=== PATIENT | female | born 1995 | race Caucasian/White ===

== ENCOUNTER 2017-01-27 16:30 | Emergency (ER) | payer BC ==
--- NOTE | 2017-01-27 17:13 | EDM.PDOC ---
ED HPI GENERAL MEDICAL PROBLEM - General Chief Complaint: General Stated Complaint: anxiety attack Time Seen by Provider: 01/27/17 17:00 Source of Information: Reports: Patient History Limitations: Reports: No Limitations - History of Present Illness INITIAL COMMENTS - FREE TEXT/NARRATIVE: Pt claims that she was sleeping in the afternoon and she woke up to go to work around 3:30 and started o feel very anxious, she claims she started to hyperventilate and started to feel weak and sweaty. Her hands and feet got cold. Hence she came in to the emergency room to be seen. She does have history of anxiety and was taking lorazepam for it for a while. It was prescribed for anxiety by her PCP in [place]. Also patient claims claims that she has been having lower back pain with vaginal discharge since today. Also she has lower abdominal cramps since today morning, which comes and goes. She has IUD and did have unprotected sex few days ago. Wants to have it checked. No nausea or vomiting. No fever or chills. No dysuria. Onset: Today Severity: Mild Associated Symptoms: Reports: Diaphoresis, Weakness. Denies: Confusion, Chest Pain, Cough, Fever/Chills, Headaches, Nausea/Vomiting, Rash, Shortness of Breath , Syncope - Related Data Allergies Allergy/AdvReac Type Severity Reaction Status Date / Time venlafaxine HCl Allergy Irritabilit Verified 01/27/17 16:47 [From Effexor] y Home Meds: Home Meds NK [No Known Home Meds] 01/27/17 [History] ED ROS GENERAL - Review of Systems Review Of Systems: See Below Constitutional: Reports: Malaise, Weakness. Denies: Fever, Chills HEENT: Denies: Rhinitis, Throat Pain, Throat Swelling Respiratory: Reports: Shortness of Breath. Denies: Wheezing, Pleuritic Chest Pain, Cough, Sputum Cardiovascular: Reports: Lightheadedness. Denies: Chest Pain GI/Abdominal: Reports: Abdominal Pain, Nausea. Denies: Vomiting : Denies: Dysuria, Frequency Musculoskeletal: Denies: Joint Pain, Joint Swelling Skin: Denies: Pruritis, Rash Neurological: Reports: Dizziness, Numbness, Tingling. Denies: Confusion, Headache, Seizure, Change in Speech, Gait Disturbance Psychiatric: Reports: Anxiety. Denies: Agitation, Confusion, Cravings ED EXAM, GENERAL - Physical Exam Exam: See Below Exam Limited By: No Limitations General Appearance: Alert, WD/WN, No Apparent Distress, Other (Pt appears calm and not anxious any more in the exam room. Her pulse is in 80s). No: Anxious Eye Exam: Bilateral Eye: EOMI, PERRL Ears: Normal External Exam, Normal Canal, Hearing Grossly Normal, Normal TMs Ear Exam: Bilateral Ear: Auricle Normal, Canal Normal, TM normal Nose: Normal Inspection, Normal Mucosa, No Blood Throat/Mouth: Normal Inspection, Normal Lips, Normal Teeth, Normal Gums, Normal Oropharynx, Normal Voice, No Airway Compromise Head: Atraumatic, Normocephalic Neck: Normal Inspection, Supple, Non-Tender, Full Range of Motion Respiratory/Chest: No Respiratory Distress, Lungs Clear, Normal Breath Sounds, No Accessory Muscle Use, Chest Non-Tender Cardiovascular: Normal Peripheral Pulses, Regular Rate, Rhythm, No Edema, No Gallop, No JVD, No Murmur, No Rub GI/Abdominal: Normal Bowel Sounds, Soft, No Organomegaly, No Distention, No Abnormal Bruit, No Mass, Tender (vagiue suprapubic discomfort) Extremities: Normal Inspection, Normal Range of Motion, Normal Capillary Refill Course - Vital Signs Text/Narrative:: Pt reassured that she probably had anxiety, but presently she is not having acute anxiety or panic attack. 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 But pt wanted to have pelvic exam done as she has vaginal discharge. As patient was taken to OB exam room. There was acute OK came in By ambulance. Pt was advised to wait until the other patient was stabilized, but patient had left as her symptoms were not emergent and will followup in clinic for pelvic exam. Last Recorded V/S: Last Vital Signs Temp 98.0 F 01/27/17 16:45 Pulse 89 01/27/17 16:45 Resp 12 01/27/17 16:45 BP 129/60 01/27/17 16:45 Pulse Ox 100 01/27/17 16:45 - Orders/Labs/Meds Orders: Active Orders 24 hr Category Date Time Status CHLAMYDIA,AND GC BY APTIMA Stat Lab 01/27/17 17:15 Received WET PREP [MYC] Stat Lab 01/27/17 17:08 Ordered Labs: Laboratory Tests 01/27/17 Range/Units 17:15 Urine Color Yellow Urine Appearance Slightly cloudy (CLEAR) Urine pH 6.0 (5.0-8.0) Ur Specific [place] 1.025 (1.003-1.030) Urine Protein Negative (NEGATIVE) mg/dL Urine Glucose (UA) Negative (NEGATIVE) mg/dL Urine Ketones Negative (NEGATIVE) mg/dL Urine Occult Blood Small H (NEGATIVE) Urine Nitrite Negative (NEGATIVE) Urine Bilirubin Negative (NEGATIVE) Urine Urobilinogen 0.2 (0.2-1.0) E.U./dL Ur Leukocyte Esterase Trace H (NEGATIVE) Urine RBC Not seen /HPF Urine WBC 0-5 H /HPF Ur Squamous Epith Cells Many /HPF Urine Bacteria Few /HPF Departure - Departure Time of Disposition: 21:00 Disposition: Home, Self-Care 01 Condition: Fair Clinical Impression: Anxiety, Vaginal discharge - Discharge Information Instructions: Panic Attacks, [id number] Referrals: PCP,None [Primary Care Provider] - Forms: ED Department Discharge - Problem List & Annotations (1) Anxiety SNOMED Code(s): 45747699 Code(s): F41.9 - ANXIETY DISORDER, UNSPECIFIED Status: Acute Current Visit: Yes (2) Vaginal discharge SNOMED Code(s): 453366621 Code(s): N89.8 - OTHER SPECIFIED NONINFLAMMATORY DISORDERS OF VAGINA Status : Acute Current Visit: Yes - Problem List Review Problem List Initiated/Reviewed/Updated: Yes - My Orders Last 24 Hours: My Active Orders 01/27/17 17:08 WET PREP [MYC] Stat 01/27/17 17:15 CHLAMYDIA,AND GC BY APTIMA Stat - Assessment/Plan Last 24 Hours: My Active Orders 01/27/17 17:08 WET PREP [MYC] Stat 01/27/17 17:15 CHLAMYDIA,AND GC BY APTIMA Stat Assessment:: Anxiety disorder Vaginal discharge Plan: Pt reassured that she probably had anxiety, but presently she is not having acute anxiety or panic attack. I did offer lexapro as she is not taking any care home medications. But pt wanted to have pelvic exam done as she has vaginal discharge. As patient was taken to OB exam room. There was acute OK came in By ambulance. Pt was advised to wait until the other patient was stabilized, but patient had left as her symptoms were not emergent and will followup in clinic for pelvic exam.
[2017-01-27 17:23] VITALS: BP 129/60
== END 2017-01-27 18:00 | disposition home or self-care (01) ==
LOC: LB.ED 16:30
DX: F41.9 Anxiety disorder, unspecified (principal); N89.8 Other specified noninflammatory disorders of vagina; Z88.8 Allergy status to other drugs, medicaments and biological substances
CPT/HCPCS: 81001; 87491; 87591; 99283

== ENCOUNTER 2017-03-14 19:47 | Emergency (ER) | payer BC ==
[2017-03-14 20:16] VITALS: BP 134/62
--- NOTE | 2017-03-14 21:33 | EDM.PDOC ---
ED HPI GENERAL MEDICAL PROBLEM - General Chief Complaint: Flank Pain Stated Complaint: Left Flank Pain Time Seen by Provider: 03/14/17 20:15 Source of Information: Reports: Patient History Limitations: Reports: No Limitations - History of Present Illness INITIAL COMMENTS - FREE TEXT/NARRATIVE: This is a 21yo F with left flank rib pain for the past day. Patient states she has been coughing very hard lately almost til she throws up and then a newphew picked her up and she landed awkwardly on his shoulder and felt a pop and then intense pain. Patient denies any shortness of breath or chest pain but has severe left rib to flank pain on movement. Onset: Sudden Duration: Hour(s):, Waxing/Waning Location: Reports: Other (left rib to flank) Left Chest Pain Score (Numeric/FACES): 8 - Related Data Allergies Allergy/AdvReac Type Severity Reaction Status Date / Time venlafaxine HCl Allergy Irritabilit Verified 01/27/17 16:47 [From Effexor] y Home Meds: Home Meds NK [No Known Home Meds] 01/27/17 [History] ED ROS GENERAL - Review of Systems Review Of Systems: ROS reveals no pertinent complaints other than HPI. ED EXAM, GENERAL - Physical Exam Exam: See Below Exam Limited By: No Limitations General Appearance: Alert, WD/WN, Mild Distress Eye Exam: Bilateral Eye: EOMI Respiratory/Chest: No Respiratory Distress Cardiovascular: Normal Peripheral Pulses GI/Abdominal: Normal Bowel Sounds Course - Vital Signs Last Recorded V/S: Last Vital Signs Temp 36.6 C 03/14/17 20:15 Pulse 75 03/14/17 20:15 Resp 20 03/14/17 20:15 BP 134/62 03/14/17 20:15 Pulse Ox 100 03/14/17 20:15 Departure - Departure Time of Disposition: 21:00 Disposition: Home, Self-Care 01 Condition: Good Clinical Impression: Left rib fracture Qualifiers: Encounter type: initial encounter Rib fracture type: single rib Fracture type: closed Qualified Code(s): S22.32XA - Fracture of one rib, left side, initial encounter for closed fracture - Discharge Information Referrals: PCP,None [Primary Care Provider] - Forms: ED Department Discharge Care Plan Goals: Counseled on supportive care, conservative therapy, pain management and close f/ u if any further concerns or worsening symptoms. F/u in clinic as directed. Patient agrees with f/u as needed.
--- NOTE | 2017-03-15 15:22 | CONS ---
DATE OF CONSULTATION: 03/14/2017 PA and lateral chest and left ribs, March 14, 2017: Heart size is normal. The lungs are clear. No pneumothorax. No pleural effusions. No liver abnormalities. No displaced fractures. IMPRESSION: Normal exam. CANDICE/HUNTER /[id number]
--- NOTE | 2017-03-16 11:17 | CR ---
DATE OF SERVICE: 03/14/2017 CLINICAL DATA: Pain PA chest and Left Ribs Heart size is normal. The lungs are clear. No pneumothorax. No pleural effusions. No displaced fractures. Impression: Normal exam. MTDD
== END 2017-03-14 21:14 | disposition home or self-care (01) ==
LOC: LB.ED 19:47
DX: S22.32XA Fracture of one rib, left side, initial encounter for closed fracture (principal); Z88.8 Allergy status to other drugs, medicaments and biological substances; X50.9XXA Other and unspecified overexertion or strenuous movements or postures, initial encounter
CPT/HCPCS: 71101-LT; 99283

== ENCOUNTER 2019-01-24 12:24 | Emergency (ER) | payer BC ==
[2019-01-24 12:39] VITALS: BP 124/80; PULSE 69
--- NOTE | 2019-01-24 13:03 | EDM.PDOC ---
ED HPI GENERAL MEDICAL PROBLEM - General Chief Complaint: General Stated Complaint: WEAK AND SHAKEY Time Seen by Provider: 01/24/19 12:55 Source of Information: Reports: Patient History Limitations: Reports: No Limitations - History of Present Illness INITIAL COMMENTS - FREE TEXT/NARRATIVE: This is a 23yo F brought in for weakness and shakiness. She states she doesn't feel right. She has nausea and vomiting prior to arrival. No fever or chills, no chest pain, no shortness of breath, no back pain but does have acute abdominal/pelvic pain 08/29. Patient just feels shaky and weak with nausea and vomiting and some diarrhea. She notes no normal regular menses as she has had a IUD for 5 years (Mirena), and has had abnormal periods for some time. She does note that she is sexually active. She also notes she has seen OB in the past for the same symptoms but denies anything was diagnosed. Onset: Sudden Duration: Hour(s): Location: Reports: Generalized Severity: Moderate Improves with: Reports: None Worsens with: Reports: None Associated Symptoms: Reports: Nausea/Vomiting, Weakness Lower Abdomen Pain Score (Numeric/FACES): 8 - Related Data Allergies Allergy/AdvReac Type Severity Reaction Status Date / Time venlafaxine HCl Allergy Irritabilit Verified 01/24/19 12:57 [From Effexor] y Home Meds: Home Meds hydrOXYzine HCl [hydrOXYzine] 25 mg PO ASDIRECTED PRN 01/24/19 [History] Past Medical History Other Cardiovascular History: Hx of Orthostatic Hypotension Other FMD TEACHER History: IUD Social & Family History - Family History Family Medical History: Noncontributory - Tobacco Use Smoking Status *Q: Current Every Day Smoker Years of Tobacco use: 4 Packs/Tins Daily: 0.2 - Caffeine Use Caffeine Use: Reports: Coffee, Energy Drinks - Alcohol Use Days Per Week of Alcohol Use: 1 Number of Drinks Per Day: 3 Total Drinks Per Week: 3 - Recreational Drug Use Recreational Drug Use: Yes Drug Use in Last 12 Months: Yes Recreational Drug Type: Reports: Marijuana/Hashish ED ROS GENERAL - Review of Systems Review Of Systems: ROS reveals no pertinent complaints other than HPI. ED EXAM, GENERAL - Physical Exam Exam: See Below Exam Limited By: No Limitations General Appearance: Alert, WD/WN, No Apparent Distress Eye Exam: Bilateral Eye: EOMI, PERRL Ears: Normal External Exam Ear Exam: Bilateral Ear: TM normal Nose: Normal Inspection Throat/Mouth: Normal Inspection, Normal Lips, Normal Oropharynx Head: Atraumatic, Normocephalic Neck: Normal Inspection, Supple, Non-Tender Respiratory/Chest: No Respiratory Distress, Lungs Clear, Normal Breath Sounds Cardiovascular: Normal Peripheral Pulses, Regular Rate, Rhythm Peripheral Pulses: 2+: Dorsalis Pedis (L), Dorsalis Pedis (R) GI/Abdominal: Normal Bowel Sounds, Soft, Non-Tender Back Exam: Normal Inspection Extremities: Normal Inspection Skin Exam: Warm, Dry, Intact Course - Vital Signs Last Recorded V/S: Last Vital Signs Temp 36.6 C 01/24/19 13:57 Pulse 69 01/24/19 13:57 Resp 20 01/24/19 13:57 BP 124/80 01/24/19 13:57 Pulse Ox 99 01/24/19 13:57 - Orders/Labs/Meds Labs: Laboratory Tests 01/24/19 01/24/19 01/24/19 Range/Units 12:30 12:30 14:12 WBC 8.3 (4.0-11.0) K/uL RBC 4.28 (3.80-5.80) M/uL Hgb 12.7 (11.5-16.5) g/dL Hct 37.8 (37.0-47.0) % MCV 88 (76-96) fL MCH 29.7 (27.0-32.0) pg MCHC 33.6 (31.0-35.0) g/dL RDW 12.4 (11.0-16.0) % Plt Count 219 (150-500) K/uL MPV 10.7 H (6.0-10.0) fL Neut % (Auto) 75.6 H (45.0-70.0) % Lymph % (Auto) 17.7 L (20.0-40.0) % Pettis % (Auto) 6.1 (3.0-10.0) % Eos % (Auto) 0.5 L (1.0-5.0) % Baso % (Auto) 0.1 (0.0-0.5) % Neut # (Auto) 6.27 (2.00-7.50) K/uL Lymph # (Auto) 1.47 L (1.50-4.00) K/uL Pettis # (Auto) 0.51 (0.20-0.80) K/uL Eos # (Auto) 0.04 (0.04-0.40) K/uL Baso # (Auto) 0.01 L (0.02-0.10) K/uL Sodium 141 (136-145) mmol/L Potassium 3.7 (3.5-5.1) mmol/L Chloride 104 (98-107) mmol/L Carbon Dioxide 27.6 (21.0-32.0) mmol/L Anion Gap 13.1 (5.0-15.0) mmol/L BUN 9 (8-26) mg/dL Creatinine 0.82 (0.55-1.02) mg/dL Est Cr Clr Drug Dosing 116.37 mL/min Estimated GFR (MDRD) > 60 (>60) MLS/MIN BUN/Creatinine Ratio 11.0 (6-25) Glucose 132 H (74-100) mg/dL Calcium 8.8 (8.5-10.1) mg/dL Total Bilirubin 0.4 (0.0-1.0) mg/dL AST 22 (15-37) U/L ALT 21 (12-78) U/L Alkaline Phosphatase 58 (46-116) U/L Total Protein 7.5 (6.4-8.2) g/dL Albumin 3.9 (3.4-5.0) g/dL Globulin 3.6 (2.2-4.2) g/dL Albumin/Globulin Ratio 1.1 (0.8-2.0) HCG, Qual Negative (NEGATIVE) Meds: Medications Discontinued Medications Generic Name Dose Route Start Last Admin Trade Name Freq PRN Reason Stop Dose Admin Sodium Chloride 1,000 mls @ 999 mls/hr 01/24/19 13:38 01/24/19 13:57 Normal Saline IV 01/24/19 14:38 Not Given .BOLUS ONE Ondansetron HCl Confirm 01/24/19 13:43 01/24/19 13:56 Zofran Odt Administered 01/24/19 13:44 Not Given Dose 4 mg .ROUTE .STK-MED ONE Ondansetron HCl 4 mg 01/24/19 13:20 01/24/19 13:56 Zofran Odt PO 01/24/19 23:59 4 mg ONETIME PRN Administration Nausea Sodium Chloride 10 ml 01/24/19 13:39 Saline Flush FLUSH ASDIRECTED PRN Keep Vein Open Departure - Departure Time of Disposition: 15:55 Disposition: Home, Self-Care 01 Condition: Good Clinical Impression: Nausea Ovarian cyst Qualifiers: Laterality: right Qualified Code(s): N83.201 - Unspecified ovarian cyst, right side - Discharge Information Instructions: Ovarian Cyst, [id number] Referrals: PCP,None [Primary Care Provider] - Forms: ED Department Discharge Additional Instructions: Discharge home. Follow up with OB specialist of your choice. You may need to have the IUD removed. Zofran 4mg by mouth every 6 hours as needed for nausea. Script sent over to the pharmacy to [facility]. Call or return to the ER if you have any questions or concerns. - Problem List & Annotations (1) Ovarian cyst SNOMED Code(s): 62448811 Code(s): N83.209 - UNSPECIFIED OVARIAN CYST, UNSPECIFIED SIDE Status: Acute Priority: Low Qualifiers: Laterality: right Qualified Code(s): N83.201 - Unspecified ovarian cyst, right side - Problem List Review Problem List Initiated/Reviewed/Updated: Yes - Assessment/Plan Plan: Counseled on supportive care and management. Discussed f/u if symptoms persist or worsen. Discussed f/u with OB as directed. Patient to f/u with her own OB for further management and care.
[2019-01-24] MEDS ORDERED: Sodium Chloride 0.9% 10 ML Syringe FLUSH PRN (13:39)
[2019-01-24] MEDS: Ondansetron 4 MG Tab.DIS ONE (13:56)
[2019-01-24] MEDS: Ondansetron 4 MG Tab.DIS PO PRN (13:56)
[2019-01-24] MEDS: Sodium Chloride 0.9% 1,000 ML IV ONE (13:57)
--- NOTE | 2019-01-26 07:39 | CT ---
DATE OF SERVICE: 01/25/19 CLINICAL DATA: Abdominal pain. UNENHANCED ABDOMEN AND PELVIC CT: Multislice axial acquisition through the abdomen and pelvis without IV or oral contrast was performed. No priors. The lung bases are clear. The unenhanced liver appears normal. No focal hepatic lesions. The gallbladder appears normal. The spleen appears normal. The pancreas appears normal. The right and left adrenals appear normal. The right and left kidneys appear normal. No nephrocalcinosis or nephrolithiasis. No hydronephrosis or hydroureter. The bladder is fluid filled. It appears normal. There is a T-shaped IUD noted within the uterus. No evidence of appendicitis. No free air. No free fluid. No dilated loops of bowel. No adenopathy. No aortic aneurysm or dissection. There is a 1.8 cm fluid density in the right ovary consistent with a right ovarian cyst. No other significant findings. No osseous abnormalities. [id number] [facility]
== END 2019-01-24 15:55 | disposition home or self-care (01) ==
LOC: LB.ED 12:24
DX: N83.201 Unspecified ovarian cyst, right side (principal); R11.2 Nausea with vomiting, unspecified; F17.210 Nicotine dependence, cigarettes, uncomplicated
CPT/HCPCS: 36415; 74176; 80053; 84703; 85025; 87430; 99285-25; A0425; A0429; A9270-GY